=== PATIENT | female | born 1990 | race Caucasian/White ===

== ENCOUNTER 2024-03-13 00:28 | Emergency (ER) | payer BC, SELFPAY ==
[2024-03-13 00:45] VITALS: BP 112/78
--- NOTE | 2024-03-13 01:15 | ED.GENMED ---
History of Present Illness
<Romero Rao MD - Last Filed: 03/13/24 17:14>
General
Chief Complaint: Abdominal Symptoms
Source: patient
Exam Limitations: none
Time Seen by Provider: 03/13/24 00:57
Nursing documentation reviewed up to this point in time: agreed with
History of Present Illness
History of Present Illness:
Patient presents to ED secondary to sudden onset of nausea, vomiting, and nonbloody diarrhea, at approximately 2 hours after having [place] food for dinner. Since then, patient has developed diffuse abdominal cramping sensation. Denies fever or
chills. Denies trauma. Denies recent change in medications or diet. Patient states that she had similar episode last summer, when she was treated in ED for potential food poisoning. Of note, patient has had URI symptoms for the past 8 days,
which is improving. Deny recent travel. Denies sick contact.
Past History
<Romero Rao MD - Last Filed: 03/13/24 17:14>
Past History
ED Past Medical History: Cancer (Lymphoma) and Other (PE)
ED Past Surgical History: Other (Deviated septum)
Social History
Tobacco: Non-smoker
Alcohol: None
Personal:
Living: with family
Review of Systems
<Romero Rao MD - Last Filed: 03/13/24 17:14>
Review of Systems
Allergies reviewed?: Yes
All Other Systems: ROS reviewed and negative except as documented in HPI and ROS
Constitutional: Reports no symptoms; Denies fever or chills
EENT: Reports runny nose
Respiratory: Reports cough; Denies trouble breathing
Cardiac: Reports no symptoms; Denies chest pain or syncope
ABD/GI: Reports abdominal pain, nausea, vomiting and diarrhea
Musculoskeletal: Reports no symptoms
Skin: Reports no symptoms
Neurological: Reports no symptoms
Phy Exam
<Romero Rao MD - Last Filed: 03/13/24 17:14>
Physical Exam
Physical Exam:
Physical Exam
General: mild distress, not acutely ill. afebrile
Head: nc/at. eomi
Neck: supple. normal range of motion.
Heart: tachycardic, no murmur.
Lungs: no acute respiratory distress. clear bilaterally
Abdomen: normal bowel sounds. not tender. no distention
Neuro: alert and oriented x 3. no focal neurological deficits
Skin: no rash
Psychiatric: well kept. interactive and cooperative
Extremities: no edema. no calf tenderness.
Course
<Romero Rao MD - Last Filed: 03/13/24 17:14>
Orders/Labs/Results
Orders:
Orders
03/13/24 01:10
Test Result ONCE
03/13/24 01:11
0.9% Sodium Chloride 1000 ml [Nss] 1,000 ml IV BOLUS
Ondansetron Injectable [Zofran] 4 mg IV NOW STA
03/13/24 01:14
Complete Blood Count/With Diff Urgent
Comprehensive Metabolic Panel Urgent
HCG, Serum Qualitative Screen Urgent
Magnesium Urgent
03/13/24 01:15
Pantoprazole [Protonix IV] 40 mg IV NOW STA
03/13/24 01:45
Prochlorperazine [Compazine] 10 mg IV NOW STA
03/13/24 02:40
0.9% Sodium Chloride 1000 ml [Nss] 1,000 ml IV BOLUS
Ketorolac [Toradol] 15 mg IV NOW STA
03/13/24 04:13
Ondansetron Orally Disint [Zofran Odt (Orally Disintegrating)] 4 mg PO NOW STA
Abnormal Lab Results
03/13/24
01:14
WBC 17.4 H 10^3/uL
(4.8-10.8)
Hgb 16.3 H g/dL
(12.0-16.0)
Hct 47.4 H %
(37.0-47.0)
MCH 31.6 H pg
(27.0-31.0)
Abs Immat Gran (auto) 0.1 H 10^3/uL
(0-0.05)
Absolute Neuts (auto) 15.2 H 10^3/uL
(1.4-6.5)
Absolute Monos (auto) 0.7 H 10^3/uL
(0.1-0.6)
Neutrophils % 87.3 H %
(42.2-75.2)
Lymphocytes % 7.0 L %
(20.5-51.1)
Carbon Dioxide 20 L mmol/L
(22-30)
BUN 18 H mg/dl
(7-17)
Glucose 133 H mg/dl
(70-99)
03/13/24 01:14
03/13/24 01:14
Vital Signs
Initial and Last Documented VS:
Initial Vital Signs
Temp Pulse Resp BP Pulse Ox
98.4 F 149 20 112/78 98
03/13/24 00:45 03/13/24 00:45 03/13/24 00:45 03/13/24 00:45 03/13/24 00:45
Last Documented Vital Signs
Temp Pulse Resp BP Pulse Ox
98.4 F 99 18 104/72 99
03/13/24 00:45 03/13/24 04:25 03/13/24 04:25 03/13/24 04:25 03/13/24 04:25
<Chintan Gracia, DO - Last Filed: 03/13/24 04:15>
Orders/Labs/Results
Orders:
Orders
03/13/24 01:10
Test Result ONCE
03/13/24 01:11
0.9% Sodium Chloride 1000 ml [Nss] 1,000 ml IV BOLUS
Ondansetron Injectable [Zofran] 4 mg IV NOW STA
03/13/24 01:14
Complete Blood Count/With Diff Urgent
Comprehensive Metabolic Panel Urgent
HCG, Serum Qualitative Screen Urgent
Magnesium Urgent
03/13/24 01:15
Pantoprazole [Protonix IV] 40 mg IV NOW STA
03/13/24 01:45
Prochlorperazine [Compazine] 10 mg IV NOW STA
03/13/24 02:40
0.9% Sodium Chloride 1000 ml [Nss] 1,000 ml IV BOLUS
Ketorolac [Toradol] 15 mg IV NOW STA
03/13/24 04:13
Ondansetron Orally Disint [Zofran Odt (Orally Disintegrating)] 4 mg PO NOW STA
Abnormal Lab Results
03/13/24
01:14
WBC 17.4 H 10^3/uL
(4.8-10.8)
Hgb 16.3 H g/dL
(12.0-16.0)
Hct 47.4 H %
(37.0-47.0)
MCH 31.6 H pg
(27.0-31.0)
Abs Immat Gran (auto) 0.1 H 10^3/uL
(0-0.05)
Absolute Neuts (auto) 15.2 H 10^3/uL
(1.4-6.5)
Absolute Monos (auto) 0.7 H 10^3/uL
(0.1-0.6)
Neutrophils % 87.3 H %
(42.2-75.2)
Lymphocytes % 7.0 L %
(20.5-51.1)
Carbon Dioxide 20 L mmol/L
(22-30)
BUN 18 H mg/dl
(7-17)
Glucose 133 H mg/dl
(70-99)
03/13/24 01:14
03/13/24 01:14
Vital Signs
Initial and Last Documented VS:
Initial Vital Signs
Temp Pulse Resp BP Pulse Ox
98.4 F 149 20 112/78 98
03/13/24 00:45 03/13/24 00:45 03/13/24 00:45 03/13/24 00:45 03/13/24 00:45
Last Documented Vital Signs
Temp Pulse Resp BP Pulse Ox
98.4 F 99 18 104/72 99
03/13/24 00:45 03/13/24 04:25 03/13/24 04:25 03/13/24 04:25 03/13/24 04:25
<Romero Rao MD - Last Filed: 03/13/24 17:14>
MDM/Problems Addressed
MDM/Problems Addressed:
History and exam concerning for likely an acute nausea, vomiting, diarrhea secondary to food poisoning versus gastritis versus ongoing viral illness. Initial significant discomfort along with tachycardia, improved after treatment. Patient will be
given additional IV fluids and reassessed afterwards.
<Romero Rao MD - Last Filed: 03/13/24 17:14>
*Critical Care Note
Total Time (30-74mins, 75-104mins- exclusive of procedures): Not Applicable
<Chintan Gracia DO - Last Filed: 03/13/24 04:15>
Update Note
Update Note:
4:15 AM care of patient was transitioned pending reassessment. After IV fluids, patient feeling much better. Will prescribe Zofran. Patient states she feels comfortable going home
ED Attending Note
<Romero Rao MD - Last Filed: 03/13/24 17:14>
-
Portions of this chart may have been created with voice recognition software.� Occasional wrong word or��sound alike� substitutions may have occurred due to the inherent limitations of voice recognition software.
Discharge Plan
Departure
Patient Disposition: Home (Routine Discharge)
Date of Disposition: 03/13/24
Time of Disposition: 04:14
Patient with high blood pressure during this ER visit?: No
Discharge Problem:
Vomiting
Instructions: Nausea and Vomiting, Adult (DC)
Prescriptions:
New
ondansetron 4 mg Tablet,Disintegrating
4 mg PO BIDPRN PRN (Reason: nausea/vomiting) Qty: 10 0RF
No Action
valacyclovir [Valtrex] 500 mg Tablet
500 mg PO DAILY
Xarelto 20 mg Tablet
20 mg PO DAILY
Bactrim
800 mg PO DAILY
senna
8.6 mg PO DAILY
Activity Restrictions/Additional Instructions:
Please return for any worsening symptoms.
You may return at any time if you have further concerns.
Please follow up with your doctor at the first available appointment, preferably this week.
Thank you for choosing [facility].
Interventions
Interventions:
*Risk Screen - Suicide Last Done: 03/13/24 00:45
*General Assessment Last Done: 03/13/24 00:45
*Neglect/Abuse Screening Last Done: 03/13/24 00:45
ED- Fall Risk Assessment Last Done: 03/13/24 00:45
*ED COVID-19 Vaccine History Last Done: 03/13/24 00:45
*Nursing Disposition Last Done: 03/13/24 04:25
JM-[id number]-[id number] Assessment Last Done: 03/13/24 01:27
Discharge Date and Time
Discharge Date/Time: 03/13/24 04:26
Print Language: GEORGIAN
[2024-03-13] MEDS: ZOFRAN 4 MG IV (01:17)
[2024-03-13] MEDS: PROTONIX IV 40 MG IV (01:17)
[2024-03-13] MEDS: NSS 1000 IV ×2 (01:18→02:51)
[2024-03-13 01:22] LABS: % Basophils 0.3 % (0-2); % Immature Granulocytes 0.5 % (0-0.5); % Monocytes 3.9 % (1.7-9.3); % Neutrophils 87.3 % (42.2-75.2); Absolute Basophils 0.1 10^3/uL (0-0.2); Absolute Eosinophils 0.2 10^3/uL (0-0.7); Absolute Immature Granulocytes 0.1 10^3/uL (0-0.05); Absolute Lymphocytes 1.2 10^3/uL (1.2-3.4); Absolute Monocytes 0.7 10^3/uL (0.1-0.6); Absolute Neutrophils 15.2 10^3/uL (1.4-6.5); Hematocrit 47.4 % (37.0-47.0); Hemoglobin 16.3 g/dL (12.0-16.0); Mean Corp Hgb Conc. 34.4 g/dL (33.0-37.0); Mean Corpuscular Hgb 31.6 pg (27.0-31.0); Mean Corpuscular Volume 91.9 fL (81.0-99.0); Mean Platelet Volume 9.9 fL (7.4-10.4); Nucleated Red Blood Cells % 0 %; Platelet Count 317 10^3/uL (130-400); Red Blood Cell Count 5.16 10^6/uL (4.20-5.40); Red Cell Dist. Width 12.5 % (11.5-14.5); White Blood Cell Count 17.4 10^3/uL (4.8-10.8)
[2024-03-13 01:27] VITALS: BMI 27.9
[2024-03-13 01:31] LABS: HCG, Serum Qualitative Screen Negative
[2024-03-13 01:32] LABS: ALT (SGPT) 25 U/L (0-35); AST (SGOT) 19 U/L (14-36); Alkaline Phosphatase 66 U/L (38-126); Blood Urea Nitrogen 18 mg/dl (7-17); Carbon Dioxide 20 mmol/L (22-30); Chloride 103 mmol/L (98-107); Estimated Creatinine Clearance 100 ml/min; Glucose 133 mg/dl (70-99); Magnesium 1.8 mg/dl (1.6-2.3); Potassium 4.1 mmol/L (3.5-5.1); Sodium 139 mmol/L (135-145); Total Bilirubin 0.5 mg/dl (0.2-1.3); eGFR > 60.00
[2024-03-13] MEDS: COMPAZINE 10 MG IV (01:48)
[2024-03-13 02:42] VITALS: BP 124/78
[2024-03-13] MEDS: TORADOL 15 MG IV (02:51)
[2024-03-13] MEDS: ZOFRAN ODT (ORALLY DISINTEGRATING) 4 MG PO (04:18)
[2024-03-13 04:25] VITALS: BP 104/72
== END 2024-03-13 04:26 | disposition home or self-care (01) ==
LOC: EMR 00:28
PROVIDERS: EMERGENCY PHYSICIAN Emergency Medicine
DX: R11.2 Nausea with vomiting, unspecified (principal); R19.7 Diarrhea, unspecified; R10.9 Unspecified abdominal pain; R05.9 Cough, unspecified; R09.89 Other specified symptoms and signs involving the circulatory and respiratory systems; R00.0 Tachycardia, unspecified; J45.909 Unspecified asthma, uncomplicated; Z86.711 Personal history of pulmonary embolism; Z85.72 Personal history of non-Hodgkin lymphomas
CPT/HCPCS: 99284; 96374; 96375 ×3; 96361 ×2; 80053; 83735; 84703; 85025